=== PATIENT | male | born 1980 | race Caucasian/White ===

== ENCOUNTER 2017-08-14 20:41 | Emergency (ER) | payer OTHER ==
[2017-08-14 20:48] VITALS: RESP 18
--- NOTE | 2017-08-14 21:39 | ED ---
Chest Pain HPI - General Chief Complaint: Chest Pain Stated Complaint: Chest pain; sent from [facility] Time Seen by Provider: 08/14/17 21:20 Source: patient Mode of arrival: wheelchair Limitations: no limitations - History of Present Illness Initial Comments: 's patient is a 36-year-old man who presents to be evaluated for chest pain. Patient states that just before 6 PM, while he was sitting in relaxing after work he noticed substernal chest pain that he described as dull or aching feeling. He also noticed that his left shoulder and left upper arm felt funny. The patient states that he did eat dinner, then took shower but the symptoms did not improve so he went to be seen at the [facility]. Patient states that when he was there and EKG was done and he was told that he needed to be seen in the emergency department, and that if he did not go directly there they would call an ambulance for him. Patient denies dyspnea, diaphoresis, nausea or vomiting, palpitations, lightheadedness or syncope. MD Complaint: chest pain Onset/Timin -: hour(s) Onset: during rest Pain Location: substernal Pain Radiation: LUE Severity: mild Quality: heaviness Consistency: constant Improves With: nothing Worsens With: nothing Treatments Prior to Arrival: none - Related Data Home Medications Medication Instructions Recorded Confirmed Adalimumab [Humira] 40 mg SQ [id number] 01/03/14 08/14/17 Allergies Allergy/AdvReac Type Severity Reaction Status Date / Time No Known Allergies Allergy Verified 08/14/17 21:34 Review of Systems ROS Statement: Those systems with pertinent positive or pertinent negative responses have been documented in the HPI. ROS Other: All systems not noted in ROS Statement are negative. Constitutional: Denies: fever, chills Respiratory: Denies: cough, dyspnea Cardiovascular: Reports: as per HPI, chest pain. Denies: palpitations, orthopnea, edema Gastrointestinal: Denies: abdominal pain, nausea, vomiting Genitourinary: Denies: dysuria, hematuria Musculoskeletal: Denies: back pain Skin: Denies: rash Neurological: Denies: headache, weakness, numbness EKG Findings - EKG Results: EKG: interpreted by ERMD, WNL, sinus rhythm (Rate is proximal to 70 bpm), normal axis, normal QRS, normal ST/T, no acute changes - MA, Pacemaker, Normal: Normal tracing: normal tracing Past Medical History Additional Past Medical History / Comment(s): arthritis History of Any Multi-Drug Resistant Organisms: None Reported Past Surgical History: No Surgical Hx Reported Past Psychological History: No Psychological Hx Reported Smoking Status: Former smoker Past Alcohol Use History: Occasional Past Drug Use History: None Reported General Exam Limitations: no limitations General appearance: alert, in no apparent distress Head exam: Present: atraumatic, normocephalic Eye exam: Present: normal appearance. Absent: scleral icterus, conjunctival injection ENT exam: Present: normal oropharynx Neck exam: Present: normal inspection, full ROM Respiratory exam: Present: normal lung sounds bilaterally. Absent: respiratory distress, wheezes, rales, rhonchi, stridor Cardiovascular Exam: Present: regular rate, normal rhythm, normal heart sounds. Absent: systolic murmur, diastolic murmur, rubs, gallop GI/Abdominal exam: Present: soft. Absent: distended, tenderness, guarding, rebound Extremities exam: Present: normal inspection, normal capillary refill. Absent: pedal edema, calf tenderness Back exam: Present: normal inspection. Absent: CVA tenderness (R), CVA tenderness (L) Neurological exam: Present: alert Skin exam: Present: warm, dry, intact, normal color. Absent: rash Course Vital Signs 08/14/17 08/14/17 08/14/17 20:45 22:05 23:52 Temperature 98.5 F 98.4 F 97.8 F Pulse Rate 69 67 62 Respiratory 18 18 18 Rate Blood Pressure 139/79 138/74 129/77 O2 Sat by Pulse 98 97 97 Oximetry Disposition Clinical Impression: Chest pain Disposition: HOME SELF-CARE Condition: Good Instructions: Chest Pain (ED) Referrals: João Carter DO [Primary Care Provider] - 1-2 days
--- NOTE | 2017-08-14 22:12 | XR ---
EXAMINATION TYPE: XR chest 2V DATE OF EXAM: 08/14/2017 COMPARISON: 12/12/2014 HISTORY: Chest pain TECHNIQUE: Frontal and lateral views of the chest are obtained. FINDINGS: Heart and mediastinum are normal. Lungs are clear. Diaphragm is normal. Bony thorax appear s normal. IMPRESSION: Normal chest. No change.
[2017-08-14 22:15] LABS: Basophils # (A) 0.1 k/uL (0-0.2); Basophils % (A) 1 %; Eosinophils # (A) 0.1 k/uL (0-0.7); Eosinophils % (A) 1 %; HCT 46.3 % (39.0-53.0); HGB 16.4 gm/dL (13.0-17.5); Lymphocytes # (A) 4.6 k/uL (1.0-4.8); Lymphocytes % (A) 43 %; MCHC 35.4 g/dL (31.0-37.0); MCV 87.6 fL (80.0-100.0); Mean Platelet Volume 6.5; Monocytes # (A) 0.7 k/uL (0-1.0); Monocytes % (A) 6 %; Neutrophils % (A) 46 %; Platelet Count 272 k/uL (150-450); RBC 5.28 m/uL (4.30-5.90); RDW 12.9 % (11.5-15.5); WBC 10.8 k/uL (3.8-10.6)
[2017-08-14 22:23] LABS: INR 1.1 (<1.2); Partial Thromboplastin Time 24.9 sec (22.0-30.0); Prothrombin Time 10.3 sec (9.0-12.0)
[2017-08-14 22:31] LABS: ALT 46 U/L (21-72); AST 41 U/L (17-59); Albumin 4.6 g/dL (3.5-5.0); Alkaline Phosphatase 83 U/L (38-126); Anion Gap 11 mmol/L; Blood Urea Nitrogen 15 mg/dL (9-20); Calcium 9.6 mg/dL (8.4-10.2); Carbon Dioxide 29 mmol/L (22-30); Chloride 101 mmol/L (98-107); Glucose 81 mg/dL (74-99); Potassium 3.8 mmol/L (3.5-5.1); Sodium 141 mmol/L (137-145); Total Bilirubin 0.4 mg/dL (0.2-1.3); Total Protein 7.9 g/dL (6.3-8.2)
[2017-08-14 22:35] LABS: Creatine Kinase 328 U/L (55-170)
[2017-08-14 22:49] LABS: Creatine Kinase MB 2.4 ng/mL (0.0-2.4); Troponin I <0.012 ng/mL (0.000-0.034)
[2017-08-15 02:05] VITALS: BP 135/77; PULSE 65; TEMP 97.5
== END 2017-08-15 02:05 | disposition home or self-care (01) ==
LOC: EC 20:41
DX: R07.2 Precordial pain (principal); M19.90 Unspecified osteoarthritis, unspecified site; Z87.891 Personal history of nicotine dependence; Z79.899 Other long term (current) drug therapy
CPT/HCPCS: 36415; 71046; 80053; 82550; 82553; 83735; 84484; 85025; 85610; 85730; 93005; 99285

== ENCOUNTER → 2017-09-12 | Outpatient (CLI) | payer OTHER ==
--- NOTE | 2017-09-12 13:14 | EST ---
EXERCISE STRESS DATE OF SERVICE: 09/12/2017 AGE: 36 SEX: Male HT: 6'6" WT: 230 PROTOCOL: Twin STAGE: II DURATION OF EXERCISE: 8:15 HEART RATE REST: 80 BLOOD PRESSURE REST: 119/86 MAXIMUM HEART RATE ACHIEVED: 154 MAXIMUM BLOOD PRESSURE: 147/77 85% MPHR: 155 100% MPHR: 182 METS: 9.9 INDICATIONS: Chest pain. CLINICAL INFORMATION: Referring by Dr. Carter for a stress test and history of chest pain. Baseline heart rate 80 beats per minute. Baseline blood pressure 119/86 mmHg. Baseline 12-lead ECG shows sinus rhythm with subtle early repolarization of ST segment. The patient exercised on Twin protocol for 8 minutes 15 seconds achieving a peak heart rate of 154 beats per minute. Normal blood pressure response to exercise. There was no ECG evidence for ischemia. No exercise-induced arrhythmias were noted. IMPRESSION: Average exercise capacity. No ECG evidence for ischemia or arrhythmias. The patient complained of shortness of breath at peak exercise and his legs felt tired. No chest pain. MMODL / IJN: [id number] /
--- NOTE | 2017-09-13 12:44 | ECHOF ---
Referral Reason:R07.89 Chest Pain MEASUREMENTS -------- HEIGHT: 180.3 cm WEIGHT: 76.2 kg BP: RVIDd: 2.3 cm (< 3.3) IVSd: 0.6 cm (0.6 - 1.1) LVIDd: 4.4 cm (3.9 - 5.3) LVPWd: 0.9 cm (0.6 - 1.1) IVSs: 1.3 cm LVIDs: 2.6 cm LVPWs: 1.4 cm Ao Diam: 3.2 cm (2.0 - 3.7) AV Cusp: 2.0 cm (1.5 - 2.6) LA Diam: 2.4 cm (2.7 - 3.8) MV EXCURSION: 24.599 mm (> 18.000) MV EF SLOPE: 86 mm/s (70 - 150) EPSS: 0.3 cm MV E [place]: 0.82 m/s MV DecT: 98 ms MV A [place]: 0.88 m/s MV E/A Ratio: 0.93 FINDINGS -------- Sinus rhythm. This was a technically good study. The left ventricular size is normal. Left ventricular wall thickness is normal. Overall left vent ricular systolic function is normal with, an EF between 55 - 60 %. The right ventricle is normal in size and function. The left atrium is normal in size. The right atrium is normal in size. The aortic valve is trileaflet, and appears structurally normal. No aortic stenosis or regurgitation. There is trace mitral regurgitation. Trace tricuspid regurgitation present. The right ventricular systolic pressure, as measured by Dopp ler, is {RVSP}. Pulmonic valve appears structurally normal. The pericardium is normal. CONCLUSIONS -------- 1. Sinus rhythm. 2. This was a technically good study. 3. The left ventricular size is normal. 4. Left ventricular wall thickness is normal. 5. Overall left ventricular systolic function is normal with, an EF between 55 - 60 %. 6. The right ventricle is normal in size and function. 7. The left atrium is normal in size. 8. The right atrium is normal in size. 9. The aortic valve is trileaflet, and appears structurally normal. No aortic stenosis or regurgitati on. 10. There is trace mitral regurgitation. 11. Trace tricuspid regurgitation present. 12. The right ventricular systolic pressure, as measured by Doppler, is {RVSP}. 13. Pulmonic valve appears structurally normal. 14. The pericardium is normal. DISHTANK OPERATOR: Ann Murcia RDCS
== END ==
LOC: RADNMMAIN 10:45
PROVIDERS: ATTEND Family Medicine
DX: R07.89 Other chest pain (principal); R06.02 Shortness of breath
CPT/HCPCS: 93017; 93306

== ENCOUNTER → 2020-03-02 | Outpatient (CLI) | payer BC ==
--- NOTE | 2020-03-02 21:49 | MR ---
EXAMINATION TYPE: MR sacroiliac joints wo con DATE OF EXAM: 03/02/2020 COMPARISON: None HISTORY: Ankylosing spondylitis of unspecified sites, Pain Multiplanar multiecho imaging of the pelvis and sacroiliac joints was performed without contrast. There is some ankylotic changes of the anterior sacroiliac joints. I see no focal bone destruction. T here is no sign of free fluid in the pelvis. There is no evidence of a fracture. The hip joint spaces are fairly normal. The lower lumbar spine is intact. There is no paraspinal mass. The lower lumbar s pine disc spaces are fairly normal. There is no evidence of spinal stenosis. IMPRESSION: Ankylotic changes of the sacroiliac joints consistent with chronic sacroiliitis. No fracture seen.
== END | disposition home or self-care (01) ==
LOC: RADMRIMAIN 18:47
PROVIDERS: ATTEND Internal Medicine Rheumatology
DX: M24.659 Ankylosis, unspecified hip (principal)
CPT/HCPCS: 72195

== ENCOUNTER → 2020-12-08 | Outpatient (CLI) | payer BC ==
--- NOTE | 2020-12-08 13:10 | US ---
EXAMINATION TYPE: US liver DATE OF EXAM: 12/08/2020 COMPARISON: NONE CLINICAL HISTORY: R79.9 Abnormal blood work. elevated alpha fetopreotein. EXAM MEASUREMENTS: Liver Length: 13.0 cm Gallbladder Wall: 0.3 cm CBD: 0.3 cm Right Kidney: 11.7 x 5.2 x 5.7 cm Pancreas: visualized portions wnl Liver: wnl Gallbladder: No stones seen Evidence for sonographic De La Torre's sign: No CBD: wnl Right Kidney: No hydronephrosis or masses seen IMPRESSION: No distinct abnormality appreciated.
--- NOTE | 2020-12-08 15:11 | US ---
EXAMINATION TYPE: US scrotum with doppler. Grayscale and color Doppler Duplex imaging performed of trey benjamin scrotum. DATE OF EXAM: 12/08/2020 COMPARISON: NONE CLINICAL HISTORY: R79.9 Abnormal blood work. Elevated alpha fetoprotein EXAM MEASUREMENTS: TESTICLES: Right Testicle: 4.7 x 2.0 x 2.8 cm Left Testicle: 5. X 2.2 x 3.1 cm EPIDIDYMIS HEAD: Right Epididymis: 1.0 x 1.0 cm, cyst measures 0.5 x 0.5 cm. This is suggestive of a right epididymal head cyst or spermatocele. Left Epididymis: 1.2 x 1.0 cm Doppler performed to assess for testicular vascularity; good bilateral color flow and waveforms are s een. There is no evidence of testicular torsion. Presence of hydroceles: No significant hydrocele. There is a tiny amount of fluid noted surrounding both testicles. Presence of varicoceles: none appreciated. IMPRESSION: 1. Right epididymal head cyst or spermatocele measuring 5 mm. 2. No evidence of testicular torsion, orchitis, or epididymitis.
== END | disposition home or self-care (01) ==
LOC: RADUSWWP 10:22
PROVIDERS: ATTEND Urology
DX: R79.9 Abnormal finding of blood chemistry, unspecified (principal)
CPT/HCPCS: 76705; 76870; 93975

== ENCOUNTER → 2021-01-22 | Outpatient (CLI) | payer BC | END | disposition home or self-care (01) | LOC: LABWHC1 16:15 | PROVIDERS: ATTEND Urology | DX: R77.2 Abnormality of alphafetoprotein (principal) | CPT/HCPCS: 36415; 82105 ==

== ENCOUNTER → 2021-02-22 | Outpatient (CLI) | payer BC ==
--- NOTE | 2021-02-23 07:59 | CT ---
EXAMINATION TYPE: CT abdomen pelvis wo/w con DATE OF EXAM: 02/22/2021 COMPARISON: Liver ultrasound December 08, 2020 HISTORY: Abnormality of alphafetoprotien CT DLP: 1538.90 mGycm, Automated Exposure Control for Dose Reduction was Utilized. CONTRAST: CT scan of the abdomen and pelvis is performed with oral and without and with IV Contrast, patient in jected with 100 mL of Isovue 300. FINDINGS: LUNG BASES: No significant abnormality is appreciated. LIVER/GB: Liver overall normal in size. No concerning solid or cystic mass identified. Gallbladder ap pears within normal limits. No biliary dilatation is noted. No surrounding ascites is seen. Findings correlate with recent ultrasound. PANCREAS: No significant abnormality is seen. SPLEEN: No significant abnormality is seen. ADRENALS: No significant abnormality is seen. KIDNEYS: On noncontrast images there is 2 to 3 mm calculus upper to mid pole of the right kidney dilia nal image 58. No left-sided nephrolithiasis. Postcontrast images show symmetric cortical medullary up take and excretion without hydronephrosis seen bilaterally. Urinary bladder within normal limits. BOWEL: Oral contrast reaches level of rectum. No suspicious small or large bowel dilatation. Normal c ontrast-filled appendix from cecum extending medially. PROSTATE/SEMINAL VESICLES: Occasional scattered pelvic phleboliths. Prostate gland measures upper fraser its of normal in size. LYMPH NODES: No greater than 1cm abdominal or pelvic lymph nodes are appreciated. OSSEOUS STRUCTURES: Mild disc space narrowing lumbosacral junction. OTHER: Small to moderate-sized fat-containing umbilical hernia. IMPRESSION: No worrisome intrahepatic mass or intrahepatic ductal dilatation. Incidental 2 to 3 mm no nobstructing right renal calculus.
== END | disposition home or self-care (01) ==
LOC: RADCTMAIN 16:03
PROVIDERS: ATTEND Urology
DX: N20.0 Calculus of kidney (principal); R77.2 Abnormality of alphafetoprotein
CPT/HCPCS: 74178; Q9967

== ENCOUNTER 2021-04-22 08:36 | Inpatient (IN) | payer BC ==
[2021-04-22] MEDS ORDERED: ALBUTEROL HFA INHALER INHALATION STA (08:56)
[2021-04-22] MEDS ORDERED: IBUPROFEN 800 MG TAB PO STA (08:56)
[2021-04-22] MEDS ORDERED: SODIUM CHLORIDE 0.9% 2,000 ML IV ONE (08:56)
[2021-04-22] MEDS ORDERED: ACETAMINOPHEN TAB 500 MG TAB PO STA (08:56)
--- NOTE | 2021-04-22 09:17 | ED ---
General Adult HPI - General Chief complaint: Fever Stated complaint: Covid+, Fever Time Seen by Provider: 04/22/21 08:45 Source: patient, RN notes reviewed Mode of arrival: wheelchair Limitations: no limitations - History of Present Illness Initial comments: This a 40-year-old male presents emergency Department chief complaint of fever cough congestion body aches. Patient states cannot give rid of the fever. He states that he started having symptoms on 04/12/2021. He tested positive 04/14/2021. Patient continues to have body aches, fever no recent dose Tylenol Motrin since last night. Patient states he does have a history of ankylosing spondylitis is on no medications for this currently. Patient states he is a former smoker no history of asthma COPD. - Related Data Home Medications Medication Instructions Recorded Confirmed Adalimumab [Humira] 40 mg SQ [id number] 01/03/14 08/14/17 Allergies Allergy/AdvReac Type Severity Reaction Status Date / Time No Known Allergies Allergy Verified 04/22/21 08:39 Review of Systems ROS Statement: Those systems with pertinent positive or pertinent negative responses have been documented in the HPI. ROS Other: All systems not noted in ROS Statement are negative. Past Medical History Additional Past Medical History / Comment(s): arthritis History of Any Multi-Drug Resistant Organisms: None Reported Past Surgical History: No Surgical Hx Reported Past Psychological History: No Psychological Hx Reported Smoking Status: Never smoker Past Alcohol Use History: Occasional Past Drug Use History: None Reported General Exam Limitations: no limitations General appearance: alert, in no apparent distress Head exam: Present: atraumatic, normocephalic, normal inspection Eye exam: Present: normal appearance, PERRL, EOMI. Absent: scleral icterus, conjunctival injection, periorbital swelling Neck exam: Present: normal inspection. Absent: tenderness, meningismus, lymphadenopathy Respiratory exam: Present: decreased breath sounds. Absent: normal lung sounds bilaterally, respiratory distress, wheezes, rales, rhonchi, stridor Cardiovascular Exam: Present: regular rate, normal rhythm, normal heart sounds. Absent: systolic murmur, diastolic murmur, rubs, gallop, clicks GI/Abdominal exam: Present: soft, normal bowel sounds. Absent: distended, tenderness, guarding, rebound, rigid Neurological exam: Present: alert, oriented X3, CN II-XII intact Skin exam: Present: warm, dry, intact, normal color. Absent: rash Course Vital Signs 04/22/21 04/22/21 08:41 10:47 Temperature 100.1 F H Pulse Rate 98 Respiratory 20 Rate Blood Pressure 128/70 O2 Sat by Pulse 92 L 90 L Oximetry Medical Decision Making - Medical Decision Making Patient's x-rays showed bilateral COVID-19 pneumonia, patient ambulates has a pulse ox 87-88%. Patient resting pulse ox is 91 and 92. Patient be admitted for: Pneumonia hypoxia. - Lab Data Result diagrams: 04/22/21 09:35 04/22/21 09:35 Lab Results 04/22/21 04/22/21 Range/Units 09:35 09:35 WBC 7.4 (3.8-10.6) k/uL RBC 5.08 (4.30-5.90) m/uL Hgb 15.4 (13.0-17.5) gm/dL Hct 44.1 (39.0-53.0) % MCV 86.8 (80.0-100.0) fL MCH 30.4 (25.0-35.0) pg MCHC 35.0 (31.0-37.0) g/dL RDW 12.7 (11.5-15.5) % Plt Count 221 (150-450) k/uL MPV 7.6 Neutrophils % 77 % Lymphocytes % 15 % Monocytes % 6 % Eosinophils % 0 % Basophils % 0 % Neutrophils # 5.7 (1.3-7.7) k/uL Lymphocytes # 1.1 (1.0-4.8) k/uL Monocytes # 0.4 (0-1.0) k/uL Eosinophils # 0.0 (0-0.7) k/uL Basophils # 0.0 (0-0.2) k/uL Sodium 134 L (137-145) mmol/L Potassium 4.1 (3.5-5.1) mmol/L Chloride 97 L (98-107) mmol/L Carbon Dioxide 28 (22-30) mmol/L Anion Gap 9 mmol/L BUN 14 (9-20) mg/dL Creatinine 1.12 (0.66-1.25) mg/dL Est GFR (CKD-EPI)AfAm >90 (>60 ml/min/1.73 sqM) Est GFR (CKD-EPI)NonAf 81 (>60 ml/min/1.73 sqM) Glucose 116 H (74-99) mg/dL Calcium 8.8 (8.4-10.2) mg/dL Total Bilirubin 0.7 (0.2-1.3) mg/dL AST 43 (17-59) U/L ALT 42 (4-49) U/L Alkaline Phosphatase 82 (38-126) U/L Total Protein 7.2 (6.3-8.2) g/dL Albumin 3.8 (3.5-5.0) g/dL Disposition Clinical Impression: COVID-19, Hypoxia Disposition: ADMITTED IP TO THIS HOSP Condition: Serious Referrals: João Carter DO [Primary Care Provider] - 1-2 days
[2021-04-22 09:56] LABS: Basophils % (A) 0 %; Eosinophils % (A) 0 %; HCT 44.1 % (39.0-53.0); HGB 15.4 gm/dL (13.0-17.5); Lymphocytes # (A) 1.1 k/uL (1.0-4.8); Lymphocytes % (A) 15 %; MCH 30.4 pg (25.0-35.0); MCV 86.8 fL (80.0-100.0); Mean Platelet Volume 7.6; Monocytes # (A) 0.4 k/uL (0-1.0); Monocytes % (A) 6 %; Neutrophils # (A) 5.7 k/uL (1.3-7.7); Neutrophils % (A) 77 %; Platelet Count 221 k/uL (150-450); RBC 5.08 m/uL (4.30-5.90); RDW 12.7 % (11.5-15.5); WBC 7.4 k/uL (3.8-10.6)
--- NOTE | 2021-04-22 10:09 | XR ---
EXAMINATION TYPE: XR chest 2V DATE OF EXAM: 04/22/2021 COMPARISON: Chest x-ray August 14, 2012 HISTORY: Fever and SOB. TECHNIQUE: Frontal and lateral views of the chest are obtained. FINDINGS: There are new increased opacities in the lower lungs and right midlung periphery. No pleur al effusion or pneumothorax seen bilaterally. The cardiac silhouette size is stable and within norm al limits. The osseous structures are intact. IMPRESSION: New Bilateral prominently lower lung multifocal opacities with additional more prominent right mid lung involvement consistent with covid-19 infection.
[2021-04-22 10:11] LABS: ALT 42 U/L (4-49); AST 43 U/L (17-59); African American GFR (CKD) >90 (>60 ml/min/1.73 sqM); Albumin 3.8 g/dL (3.5-5.0); Alkaline Phosphatase 82 U/L (38-126); Anion Gap 9 mmol/L; Blood Urea Nitrogen 14 mg/dL (9-20); Calcium 8.8 mg/dL (8.4-10.2); Carbon Dioxide 28 mmol/L (22-30); Chloride 97 mmol/L (98-107); Glucose 116 mg/dL (74-99); Non-African American GFR(CKD) 81 (>60 ml/min/1.73 sqM); Potassium 4.1 mmol/L (3.5-5.1); Sodium 134 mmol/L (137-145); Total Bilirubin 0.7 mg/dL (0.2-1.3); Total Protein 7.2 g/dL (6.3-8.2)
[2021-04-22] MEDS ORDERED: NALOXONE 0.4 MG/ML 1 ML VIAL IV PRN (10:54)
[2021-04-22] MEDS ORDERED: ONDANSETRON 4 MG/2 ML VIAL IVP PRN (10:54)
[2021-04-22] MEDS ORDERED: ACETAMINOPHEN TAB 325 MG TAB PO PRN (10:54)
[2021-04-22] MEDS ORDERED: DEXAMETHASONE SOD PHOSPHATE 10 MG/ML 1 ML VIAL IVP STA (10:55)
[2021-04-22] MEDS: SODIUM CHLORIDE 0.9% 1,000 ML IV SCH (11:25)
--- NOTE | 2021-04-22 13:14 | P.CNPUL ---
History of Present Illness Consult date: 04/22/21 Reason for consult: dyspnea History of present illness: 40-year-old male patient came into the ED because of fever and cough and body aches. The patient has been febrile and his been having issues since 04/12/2021. He apparently tested positive for coronary stenting on 04/14/2021. He continued to have symptoms was taken a combination of Motrin and Tylenol patient basis. She is currently running a low-grade fever of 100.1. Pulse ox on room air is around 90%. His chest x-ray shows diffuse bilateral pulmonary infiltrates in the perihilar area and some in the right upper lobe. The patient's blood work shows a normal white cell count, electrolytes are normal, informative markers are still pending for now. Presentation is highly susp icious for cold knife he relates that pneumonia. Note that he has history of ankylosing spondylitis and he has been treated with Humira injections 40 mg subcu every 2 weeks on outpatient basis. Note that this is a on vaccinated individual and the patient has been symptomatic since 04/12/2021. His was also infected [id number]. Mother the patient has not taken his Humira injection for more than 3 months. The patient has taken prednisone on outpatient basis and he took it for a total of 7 days started on 04/15/2021. Review of Systems Constitutional: Reports fatigue, Reports fever, Reports lethargy, Reports weakness Eyes: denies as per HPI, denies blurred vision, denies bulging eye, denies decreased vision, denies diplopia, denies discharge, denies dry eye, denies irritation, denies itching, denies pain, denies photophobia, denies loss of peripheral vision, denies loss of vision, denies tunnel vision/blind spots Ears: deny: decreased hearing, ear discharge, earache, tinnitus Breasts: absent: as per HPI, gynecomastia Cardiovascular: Reports decreased exercise tolerance, Reports dyspnea on exertion Respiratory: Reports as per HPI, Reports cough Gastrointestinal: Reports as per HPI Genitourinary: Reports as per HPI Musculoskeletal: Reports as per HPI Musculoskeletal: absent: ankle pain, ankle stiffness, ankle swelling, as per HPI, elbow pain, elbow stiffness, elbow swelling, foot pain, foot stiffness, foot swelling, hand pain, hand stiffness, hand swelling, hip pain, hip stiffness, hip swelling, knee pain, knee stiffness, knee swelling, shoulder pain, shoulder stiffness, shoulder swelling, wrist pain, wrist stiffness, wrist swelling Integumentary: Reports as per HPI Neurological: Reports as per HPI, Reports weakness Psychiatric: Reports as per HPI Endocrine: Reports as per HPI Hematologic/Lymphatic: Reports as per HPI Allergic/Immunologic: Reports as per HPI Past Medical History Additional Past Medical History / Comment(s): arthritis History of Any Multi-Drug Resistant Organisms: None Reported Past Surgical History: No Surgical Hx Reported Past Psychological History: No Psychological Hx Reported Smoking Status: Never smoker Past Alcohol Use History: Occasional Past Drug Use History: None Reported Medications and Allergies Home Medications Medication Instructions Recorded Confirmed Type No Known Home Medications 04/22/21 04/22/21 History Allergies Allergy/AdvReac Type Severity Reaction Status Date / Time No Known Allergies Allergy Verified 04/22/21 12:17 Physical Exam Vitals: Vital Signs Temp Pulse Resp BP Pulse Ox 04/22/21 12:40 18 04/22/21 11:23 98.8 F 70 18 111/66 90 L 04/22/21 10:47 90 L 04/22/21 08:41 100.1 F H 98 20 128/70 92 L Intake and Output 04/21/21 04/22/21 04/22/21 22:59 06:59 14:59 Other: Weight 97.522 kg Gen. appearance the patient is on room air oxygen with a pulse ox ranging between 90 and 92%. His breathing is nonlabored and his comfortable. The patient appeared well nourished and normally developed. Vital signs as documented. Head exam is unremarkable. No scleral icterus or corneal arcus noted. Neck is without jugular venous distension, thyromegaly, or carotid bruits. Carotid upstrokes are brisk bilaterally. Lungs reveal crackles in the mid and lower lung alex bilaterally. Cardiac exam reveals the PMI to be normally sized and situated. Rhythm is regular. First and second heart sounds normal. No murmurs, rubs or gallops. Abdominal exam reveals normal bowel sounds, no masses, no organomegaly and no aortic enlargement. Extremities are nonedematous and both femoral and pedal pulses are normal. Examination of the skin revealed no evidence of significant rashes, suspicious appearing nevi or other concerning lesions.. Neurologically, the patient is awake and alert and the patient does not have any focal neurological deficit. Cranial nerves are essentially intact. Results - Laboratory Findings CBC and BMP: 04/22/21 09:35 04/22/21 09:35 Abnormal lab findings: Abnormal Labs 04/22/21 09:35 Sodium 134 L Chloride 97 L Glucose 116 H - Diagnostic Findings Chest x-ray: image reviewed Assessment and Plan Plan: 1 acute COVID 19 related pneumonia, treated with prednisone outpatient basis, sy mptoms started approximately 10 days ago worse over this past few days and the patient presented to the hospital for worsening shortness of breath and ongoing fever 2 fever secondary to above 3 generalized weakness secondary to above 4 acute hypoxic respiratory failure currently pulse ox is in the order of 92% on room air oxygen 5 history of ankylosing spondylitis, and the patient has been off Humira for several months Plan Titrate FiO2 to maintain a saturation above 90% and use oxygen if needed Put the patient on Decadron 6 mg IV every 24 hours and the patient is outside the window for the severe Check inflammatory markers including pro-calcitonin, LDH, CRP, and d-dimer is Start the patient on Lovenox 40 mg subcu for DVT prophylaxis Multivitamin supplements IV fluids of normal saline at the rate of 75 mL an hour We'll continue to follow
[2021-04-22] MEDS ORDERED: HYDROcodone/APAP 5-325MG 1 EACH TAB PO PRN (13:57)
--- NOTE | 2021-04-22 14:01 | P.HPIM ---
History of Present Illness H&P Date: 04/22/21 Chief Complaint: shortness of breath [facility] is covering [facility] (Dr. Kurtz, Dr. Sorensen, and Dr. Sanchez) on 04/22 and 04/23 please contact us on perfect serve with any questions, needs, or concerns. Patient is a 40 yo male patient of Dr. Carter with a hx of ankylosing spondylitis non-immunosuppressive agents and prior tobacco abuse who presented to the emergency department congestion and body aches. Patient tested positive for COVID-19 on 04/14. He was unable to cherise his fevers at home. On arrival to the ER he had a fever of 100.1 and an O2 sat of 92% on room air. Chest x-ray showed new bilateral prominent lower lobe multifocal opacity with mid lung involvement. Initial laboratory analysis shows sodium 134, chloride 97, and glucose 116. In the ER he was given a dose of Decadron, Motrin, and 1 L of IV fluids. Arrangements are made for admission. Patient seen and examined at bedside. He reports that his had symptoms of cold with starting on 04/11, his symptoms started the evening of 04/12 with loss of smell and taste, sore throat, cough, and shortness of breath. He received his positive test on 04/14 (verified on his phone) from [facility]. He then contacted Dr. Carter who prescribed him prednisone taper. He initially felt better but in the last 5 days has had worsening fevers. His appetite has been low. He has been drinking a lot of fluids but not eating much. He has a history of ankylosing spondylitis that was taken off of [facility] in the summer. He has not been vaccinated. He is still working. He uses no assistive devices. General: ill appearing, mild distress, appears at stated age Derm: warm, dry Head: atraumatic, normocephalic, symmetric Eyes: EOMI, no lid lag, anicteric sclera, pupils equal round reactive to light ENT: Nose and ears atraumatic, no thrush, no pharyngeal erythema Neck: No thyromegaly, no cervical lymphadenopathy, trachea midline, supple Mouth: no lip lesion, mucus membranes dry, lip cracking Cardiovascular: S1S2 reg, no murmur, positive posterior tibial pulse bilateral, no edema, capillary refill less than 2 seconds Lungs: course bs bilateral, no ronchi, no rales, no wheeze, no accessory muscle use Abdominal: soft, nontender to palpation, no guarding, no appreciable organomegaly, normal bowel sounds Ext: no gross muscle atrophy, muscle strength muscle strength 5 out of 5 in all 4 extremities, no contractures Neuro: CN II-XI grossly intact, light touch intact all 4 extremities, finger to nose within normal limits, Psych: Alert, oriented, appropriate affect Assessment/plan: COVID-19 pneumonitis in an unvacinated individual Acute hypoxic respiratory failure (not requiring any oxygen but has a SpO2 is 94) -Decadron day #1 -Pulmonary consultation -Zinc, vitamin D, vitamin C -Follow: Labs - repeat chest x-ray in a.m. Hyponatremia secondary to dehydration, mild - IVF X 24 horus Ankylosing spondylitis - no requiring any treatment at this time The patient is admitted with an anticipated greater than 2 midnight stay for evaluation of COVID 19 pneumonitis . Surrogate decision-maker: CODE STATUS:full code-- patient would want ventilation for COVID DVT prophylaxis: Lovenox Discussed with: patient, nursing, ed physician, Yuliana Davis, patient will call his Anticipated discharge date: 2-[address]: home A total of 65 minutes was spent on the care of this complex patient more than 50% of the time was spent in counseling and care coordination. Past Medical History Additional Past Medical History / Comment(s): arthritis History of Any Multi-Drug Resistant Organisms: None Reported Past Surgical History: No Surgical Hx Reported Past Psychological History: No Psychological Hx Reported Smoking Status: Never smoker Past Alcohol Use History: Occasional Past Drug Use History: None Reported Medications and Allergies Home Medications Medication Instructions Recorded Confirmed Type No Known Home Medications 04/22/21 04/22/21 History Allergies Allergy/AdvReac Type Severity Reaction Status Date / Time No Known Allergies Allergy Verified 04/22/21 12:17 Physical Exam Osteopathic Statement: *. No significant issues noted on an osteopathic st ructural exam other than those noted in the History and Physical/Consult. Vitals: Vital Signs Temp Pulse Resp BP Pulse Ox 04/22/21 12:40 18 04/22/21 11:23 98.8 F 70 18 111/66 90 L 04/22/21 10:47 90 L 04/22/21 08:41 100.1 F H 98 20 128/70 92 L Intake and Output 04/21/21 04/22/21 04/22/21 22:59 06:59 14:59 Other: Weight 97.522 kg Results CBC & Chem 7: 04/22/21 09:35 04/22/21 09:35 Labs: Abnormal Lab Results - Last 24 Hours (Table) 04/22/21 Range/Units 09:35 Sodium 134 L (137-145) mmol/L Chloride 97 L (98-107) mmol/L Glucose 116 H (74-99) mg/dL
[2021-04-22] MEDS: CHOLECALCIFEROL 25 MCG (1000 IU) TABLET PO SCH (15:08)
[2021-04-22] MEDS: ASCORBIC ACID 500 MG TAB PO SCH (15:09)
[2021-04-22] MEDS: ZINC SULFATE 220 MG CAP PO SCH (15:09)
[2021-04-22] MEDS: ENOXAPARIN 40 MG/0.4 ML SYRINGE SQ SCH (16:59)
[2021-04-22 20:04] LABS: C Reactive Protein 12.2 mg/dL (0.00-0.80)
[2021-04-23] MEDS: SODIUM CHLORIDE 0.9% 1,000 ML IV SCH ×2 (04:37→16:39)
--- NOTE | 2021-04-23 07:37 | XR ---
EXAMINATION TYPE: XR chest 1V portable DATE OF EXAM: 04/23/2021 COMPARISON: 04/22/2021 HISTORY: COVID TECHNIQUE: Single frontal view of the chest is obtained. FINDINGS: Bilateral peripheral airspace disease, worse on the right, appears similar to the prior examination. Cardiac silhouette is unchanged. IMPRESSION: No significant change since the prior exam.
[2021-04-23] MEDS: FAMOTIDINE 20 MG TAB PO SCH (08:51)
[2021-04-23] MEDS: ZINC SULFATE 220 MG CAP PO SCH (08:51)
[2021-04-23] MEDS: dexAMETHasone 2 MG TAB PO SCH (08:51)
[2021-04-23] MEDS: CHOLECALCIFEROL 25 MCG (1000 IU) TABLET PO SCH (08:51)
[2021-04-23] MEDS: ASCORBIC ACID 500 MG TAB PO SCH (08:51)
[2021-04-23] MEDS: ENOXAPARIN 40 MG/0.4 ML SYRINGE SQ SCH (08:51)
[2021-04-23 09:05] LABS: HGB 14.2 gm/dL (13.0-17.5); MCHC 33.9 g/dL (31.0-37.0); MCV 88.5 fL (80.0-100.0); Mean Platelet Volume 8.2; Platelet Count 227 k/uL (150-450); RBC 4.74 m/uL (4.30-5.90); WBC 11.1 k/uL (3.8-10.6)
[2021-04-23 09:28] LABS: Potassium 4.3 mmol/L (3.5-5.1)
[2021-04-23 09:29] LABS: African American GFR (CKD) >90 (>60 ml/min/1.73 sqM); Anion Gap 7 mmol/L; Blood Urea Nitrogen 14 mg/dL (9-20); Calcium 8.3 mg/dL (8.4-10.2); Carbon Dioxide 27 mmol/L (22-30); Chloride 100 mmol/L (98-107); Glucose 151 mg/dL (74-99); Non-African American GFR(CKD) >90 (>60 ml/min/1.73 sqM); Sodium 134 mmol/L (137-145)
--- NOTE | 2021-04-23 10:38 | P.PN ---
Subjective Progress Note Date: 04/23/21 [facility] is covering [facility] (Dr. Kurtz, Dr. Sorensen, and Dr. Sanchez) on 04/22 and 04/23 please contact us on perfect serve with any questions, needs, or concerns. Patient is a 40 yo male patient of Dr. Carter with a hx of ankylosing spondylitis non-immunosuppressive agents and prior tobacco abuse who presented to the emergency department congestion and body aches. Patient tested positive for COVID-19 on 04/14. He was unable to cherise his fevers at home. On arrival to the ER he had a fever of 100.1 and an O2 sat of 92% on room air. Chest x-ray showed new bilateral prominent lower lobe multifocal opacity with mid lung involvement. Initial laboratory analysis shows sodium 134, chloride 97, and glucose 116. In the ER he was given a dose of Decadron, Motrin, and 1 L of IV fluids. Arrangements were made for admission. He did well and had no recurrent fevers after admission. He was seen by pulmonary Patient seen and examined at bedside. Shortness of breath is no better than yesterday. Continues with cough. No fevers. Appetite has resumed. He is to go home. We had an approximately 20 minute discussion about COVID-19 va ccination. General: ill appearing, no distress, appears at stated age Derm: warm, dry Head: atraumatic, normocephalic, symmetric Eyes: EOMI, no lid lag, anicteric sclera Mouth: no lip lesion, mucus membranes moist Cardiovascular: S1S2 reg, no murmur, positive posterior tibial pulse bilateral, Lungs: Course bs bilateral, no rhonchi, no rales , no accessory muscle use, no converational dyspnea Abdominal: soft, nontender to palpation, no guarding, no appreciable organomegaly Ext: no gross muscle atrophy, no edema, no contractures Neuro: CN II-XI grossly intact, no focal neuro deficits Psych: Alert, oriented, appropriate affect Assessment/plan: COVID-19 pneumonitis in an unvacinated individual Acute hypoxic respiratory failure (not requiring any oxygen but has a SpO2 is 94) -Decadron day #2 -Pulmonary recs appreciated -Zinc, vitamin D, vitamin C -Follow: Labs - plan is to monitor for more day given duration of symptoms and being 93% on room air, Patient is aware likely home in AM is SPO2 is stable. Leukocytosis - likely reactive - repeat CBC in AM Hyponatremia secondary to dehydration, mild - IVF - stable. Ankylosing spondylitis - no requiring any treatment at this time DVT prophylaxis: Lovenox Discussed with: patient, nursing Anticipated discharge date: in AM if no O2 requirements. Anticipated discharge place: home A total of 35 minutes was spent on the care of this complex patient more than 50% of the time was spent in counseling and care coordination. Objective - Vital Signs Vital signs: Vital Signs Temp 98.4 F 04/23/21 06:06 Pulse 78 04/23/21 06:06 Resp 16 04/23/21 06:06 BP 125/75 04/23/21 06:06 Pulse Ox 93 L 04/23/21 06:06 Intake & Output 04/22/21 04/23/21 04/23/21 18:59 06:59 18:59 Weight 97.522 kg 97.522 kg Other: # Voids 1 - Labs CBC & Chem 7: 04/23/21 08:17 04/23/21 08:17 Labs: Abnormal Lab Results - Last 24 Hours (Table) 04/22/21 04/22/21 04/23/21 Range/Units 13:25 13:25 08:17 WBC (3.8-10.6) k/uL D-Dimer 0.61 H (<0.60) mg/L FEU Sodium 134 L (137-145) mmol/L Glucose 151 H (74-99) mg/dL Calcium 8.3 L (8.4-10.2) mg/dL Ferritin 918.0 H (22.0-322.0) ng/mL Lactate Dehydrogenase 306 H (120-246) U/L C-Reactive Protein 12.20 H (0.00-0.80) mg/dL 04/23/21 Range/Units 08:17 WBC 11.1 H (3.8-10.6) k/uL D-Dimer (<0.60) mg/L FEU Sodium (137-145) mmol/L Glucose (74-99) mg/dL Calcium (8.4-10.2) mg/dL Ferritin (22.0-322.0) ng/mL Lactate Dehydrogenase (120-246) U/L C-Reactive Protein (0.00-0.80) mg/dL
--- NOTE | 2021-04-23 14:47 | P.PN ---
Subjective Progress Note Date: 04/23/21 40-year-old male patient came into the ED because of fever and cough and body aches. The patient has been febrile and his been having issues since 04/12/2021. He apparently tested positive for coronary stenting on 04/14/2021. He continued to have symptoms was taken a combination of Motrin and Tylenol patient basis. She is currently running a low-grade fever of 100.1. Pulse ox on room air is around 90%. His chest x-ray shows diffuse bilateral pulmonary infiltrates in the perihilar area and some in the right upper lobe. The patient's blood work shows a normal white cell count, electrolytes are normal, informative markers are still pending for now. Presentation is highly suspicious for cold knife he relates that pneumonia. Note that he has history of ankylosing spondylitis and he has been treated with Humira injections 40 mg subcu every 2 weeks on outpatient basis. Note that this is a on vaccinated individual and the patient has been symptomatic since 04/12/2021. His was also infected [id number]. Mother the patient has not taken his Humira injection for more than 3 months. The patient has taken prednisone on outpatient basis and he took it for a total of 7 days started on 04/15/2021. on today's evaluation of 04/23/2021, I'm seeing the patient for a follow-up. He was seen in consultation yesterday and the patient was seen in the emergency department. Currently is on the medical floor. The patient has been infected with coronavirus and the patient had hypoxemic respiratory failure and for that reason the patient was hospitalized. Current pulse ox is ranging between 91-97% on room air oxygen and the patient is currently afebrile and hemodynamically stable. He was seen in the emergency department yesterday. He was started on Lovenox 40 mg subcu for DVT prophylaxis. The patient was also started on echo 6 mg by mouth daily. On his blood work, the patient has a LDH level of 306 and a CRP level of 12.2. all of the blood electrolytess are all within normal limits. D-dimer is at 0.6 and the white cell count is at 11.1. Objective - Vital Signs Vital signs: Vital Signs Temp 98.5 F 04/23/21 12:30 Pulse 85 04/23/21 12:30 Resp 20 04/23/21 12:30 BP 119/71 04/23/21 12:30 Pulse Ox 91 L 04/23/21 12:30 Intake & Output 04/22/21 04/23/21 04/23/21 18:59 06:59 18:59 Weight 97.522 kg 97.522 kg Other: # Voids 1 - Exam Gen. appearance the patient is on room air oxygen with a pulse ox ranging between 90 and 92%. His breathing is nonlabored and his comfortable. The patient appeared well nourished and normally developed. Vital signs as documented. Head exam is unremarkable. No scleral icterus or corneal arcus noted. Neck is without jugular venous distension, thyromegaly, or carotid bruits. Carotid upstrokes are brisk bilaterally. Lungs reveal crackles in the mid and lower lung alex bilaterally. Cardiac exam reveals the PMI to be normally sized and situated. Rhythm is regular. First and second heart sounds normal. No murmurs, rubs or gallops. Abdominal exam reveals normal bowel sounds, no masses, no organomegaly and no aortic enlargement. Extremities are nonedematous and both femoral and pedal pu lses are normal. Examination of the skin revealed no evidence of significant rashes, suspicious appearing nevi or other concerning lesions.. Neurologically, the patient is awake and alert and the patient does not have any focal neurological deficit. Cranial nerves are essentially intact. - Labs CBC & Chem 7: 04/23/21 08:17 04/23/21 08:17 Labs: Abnormal Lab Results - Last 24 Hours (Table) 04/22/21 04/23/21 04/23/21 Range/Units 13:25 08:17 08:17 WBC 11.1 H (3.8-10.6) k/uL Sodium 134 L (137-145) mmol/L Glucose 151 H (74-99) mg/dL Calcium 8.3 L (8.4-10.2) mg/dL Ferritin 918.0 H (22.0-322.0) ng/mL Lactate Dehydrogenase 306 H (120-246) U/L C-Reactive Protein 12.20 H (0.00-0.80) mg/dL Assessment and Plan Plan: 1 acute COVID 19 related pneumonia, treated with prednisone outpatient basis, symptoms started approximately 10 days ago worse over this past few days and the patient presented to the hospital for worsening shortness of breath and ongoing fever 2 fever secondary to above 3 generalized weakness secondary to above 4 acute hypoxic respiratory failure currently pulse ox is in the order of 92% on room air oxygen 5 history of ankylosing spondylitis, and the patient has been off Humira for several months Plan the patient is currently on room air oxygen Continue total of 10 day course of Decadron Inflammatory markers are mildly elevated IV fluids to KVO discharge home within the next 24 hours
[2021-04-24] MEDS: SODIUM CHLORIDE 0.9% 1,000 ML IV SCH (05:43)
[2021-04-24 07:08] LABS: HCT 39.5 % (39.0-53.0); HGB 13.5 gm/dL (13.0-17.5); MCH 30.1 pg (25.0-35.0); MCHC 34.1 g/dL (31.0-37.0); MCV 88.3 fL (80.0-100.0); Platelet Count 245 k/uL (150-450); RBC 4.48 m/uL (4.30-5.90); RDW 12.2 % (11.5-15.5); WBC 10.9 k/uL (3.8-10.6)
[2021-04-24 07:12] LABS: ALT 26 U/L (4-49); AST 26 U/L (17-59); African American GFR (CKD) >90 (>60 ml/min/1.73 sqM); Albumin 3.1 g/dL (3.5-5.0); Alkaline Phosphatase 68 U/L (38-126); Anion Gap 5 mmol/L; Blood Urea Nitrogen 14 mg/dL (9-20); C Reactive Protein 5.7 mg/dL (<1.0); Calcium 8.4 mg/dL (8.4-10.2); Carbon Dioxide 26 mmol/L (22-30); Chloride 103 mmol/L (98-107); Globulin 3.1 g/dL; Glucose 109 mg/dL (74-99); LDH 774 U/L (313-618); Non-African American GFR(CKD) >90 (>60 ml/min/1.73 sqM); Potassium 4.4 mmol/L (3.5-5.1); Sodium 134 mmol/L (137-145); Total Bilirubin 0.4 mg/dL (0.2-1.3); Total Protein 6.2 g/dL (6.3-8.2)
[2021-04-24] MEDS: FAMOTIDINE 20 MG TAB PO SCH (08:26)
[2021-04-24] MEDS: ENOXAPARIN 40 MG/0.4 ML SYRINGE SQ SCH (08:26)
[2021-04-24] MEDS: CHOLECALCIFEROL 25 MCG (1000 IU) TABLET PO SCH (08:27)
[2021-04-24] MEDS: dexAMETHasone 2 MG TAB PO SCH (08:27)
[2021-04-24] MEDS: ZINC SULFATE 220 MG CAP PO SCH (08:27)
[2021-04-24] MEDS: ASCORBIC ACID 500 MG TAB PO SCH (08:27)
--- NOTE | 2021-04-24 13:24 | P.PN ---
Subjective Progress Note Date: 04/24/21 History of present illness: Patient is a 40 [address] patient of Dr[address] Carter with a hx of ankylosing spondylitis non-immunosuppressive agents and prior tobacco abuse who presented t o the emergency department congestion and body aches. Patient tested positive for COVID-19 on 04/14. He was unable to cherise his fevers at home. On arrival to the ER he had a fever of 100.1 and an O2 sat of 92% on room air. Chest x-ray showed new bilateral prominent lower lobe multifocal opacity with mid lung involvement. Initial laboratory analysis shows sodium 134, chloride 97, and glucose 116. In the ER he was given a dose of Decadron, Motrin, and 1 L of IV fluids. 04/24: Patient is found sitting up in bed in no acute distress. He is not needing any oxygen for support. Patient states that he is feeling better compared to yesterday. Continues to have cough, lung sounds are clear. Patient remains afebrile, heart rate 91, respirations 20, blood pressure 134/73, pulse ox a 90% on room air. Review Of Systems: Constitutional: No fever, no chills, no night sweats. No weight change. No weakness, fatigue or lethargy. No daytime sleepiness. EENT: No headache. No blurred vision or double vision, no loss of vision. No loss of Hearing, no ringing in the ears, no dizziness. No nasal drainage or congestion. No epistaxis. No sore throat. Lungs: No shortness of breath, cough, no sputum production. No wheezing. Cardiovascular: No chest pain, no lower extremity edema. No palpitations. No paroxysmal nocturnal dyspnea. No orthopnea. No lightheadedness or dizziness. No syncopal episodes. Abdominal: no abdominal discomfort. No nausea, vomiting. no diarrhea. No constipation. No bloody or tarry stools. no loss of appetite. Genitourinary: No dysuria, increased frequency, urgency. No urinary retention. Musculoskeletal: No myalgias. No muscle weakness, no gait dysfunction, no frequent falls. No back pain. No neck pain. Integumentary: No wounds, no lesions. No rash or pruritus. No unusual bruising. No change in hair or nails. Neurologic: No aphasia. No facial droop. No change in mentation. No head injury. No headache. No paralysis. No paresthesia. Psychiatric: No depression. No anxiety. No mood swings. Endocrine: No abnormal blood sugars. No weight change. No excessive sweating or thirst. Physical exam: General Appearance: Alert, cooperative, no distress, appears stated age ill appearing. Neck HEENT: Supple, no lymphadenopathy, no thyroid enlargement, no carotid bruits. Lungs: Clear to auscultation without crackles or wheezes no rhonchi, no deformity. Chest Wall: Chest wall normal expansion with deep inspiration no tenderness and no deformity was found on exam, no costochondral pain or discomfort. Heart: Regular rate and rhythm, S1, S2 normal, no murmur, rub or gallop. Back: Symmetric, no curvature, ROM normal, no CVA tenderness. Abdomen: Soft, non-tender, no rebound or rigidity, no hepatosplenomegaly. Extremities: Extremities normal, atraumatic, no cyanosis or edema. Pulses: 2+ and symmetric. Skin: Skin color, texture, tugor normal, no rashes or lesions. Neurologic: Alert oriented x3 cranial nerves II through XII intact, no motor deficit, no abnormal balance or gait Assessment/plan: 1. COVID-19 pneumonitis and an vaccinated individual. Continue Decadron, pulmonary consult, zinc vitamin D vitamin C. 2. Acute hypoxia respiratory failure not requiring any oxygen and has SpO2 less than 94. As noted above 3. Hypernatremia secondary to dehydration mild, IV hydration 4. Ankylosing spondylitis, stable. 5. DVT prophylaxis. Lovenox 40 mg subcu 6. GI prophylaxis. Pepcid 40 mg by mouth daily CODE STATUS: Full code Discharge plan: Home possibly tomorrow Impression and plan of care have been directed as dictated by the signing physician. Rosa Cunningham nurse practitioner acting as scribe for signing physician. Objective - Vital Signs Vital signs: Vital Signs Temp 98.2 F 04/24/21 09:10 Pulse 91 04/24/21 09:10 Resp 20 04/24/21 09:10 BP 134/73 04/24/21 09:10 Pulse Ox 90 L 04/24/21 09:10 Intake & Output 04/23/21 04/24/21 04/24/21 18:59 06:59 18:59 Intake Total 600 Balance 600 Intake: Intake, IV Titration 600 Amount Sodium Chloride 0.9% 1, 600 000 ml @ 75 mls/hr IV . [id number] [facility] Rx#:[id number] Other: # Voids 6 2 - Labs CBC & Chem 7: 04/24/21 06:22 04/24/21 06:22 Labs: Abnormal Lab Results - Last 24 Hours (Table) 04/24/21 04/24/21 Range/Units 06:22 06:22 WBC 10.9 H (3.8-10.6) k/uL Sodium 134 L (137-145) mmol/L Glucose 109 H (74-99) mg/dL Lactate Dehydrogenase 774 H (313-618) U/L C-Reactive Protein 5.7 H (<1.0) mg/dL Total Protein 6.2 L (6.3-8.2) g/dL Albumin 3.1 L (3.5-5.0) g/dL
--- NOTE | 2021-04-24 13:54 | P.PN ---
Subjective Progress Note Date: 04/24/21 40-year-old male patient came into the ED because of fever and cough and body aches. The patient has been febrile and his been having issues since 04/12/2021. He apparently tested positive for coronary stenting on 04/14/2021. He continued to have symptoms was taken a combination of Motrin and Tylenol patient basis. She is currently running a low-grade fever of 100.1. Pulse ox on room air is around 90%. His chest x-ray shows diffuse bilateral pulmonary infiltrates in the perihilar area and some in the right upper lobe. The patient's blood work shows a normal white cell count, electrolytes are normal, informative markers are still pending for now. Presentation is highly suspicious for cold knife he relates that pneumonia. Note that he has history of ankylosing spondylitis and he has been treated with Humira injections 40 mg subcu every 2 weeks on outpatient basis. Note that this is a on vaccinated individual and the patient has been symptomatic since 04/12/2021. His was also infected [id number]. Mother the patient has not taken his Humira injection for more than 3 months. The patient has taken prednisone on outpatient basis and he took it for a total of 7 days started on 04/15/2021. on today's evaluation of 04/23/2021, I'm seeing the patient for a follow-up. He was seen in consultation yesterday and the patient was seen in the emergency department. Currently is on the medical floor. The patient has been infected with coronavirus and the patient had hypoxemic respiratory failure and for that reason the patient was hospitalized. Current pulse ox is ranging between 91-97% on room air oxygen and the patient is currently afebrile and hemodynamically stable. He was seen in the emergency department yesterday. He was started on Lovenox 40 mg subcu for DVT prophylaxis. The patient was also started on echo 6 mg by mouth daily. On his blood work, the patient has a LDH level of 306 and a CRP level of 12.2. all of the blood electrolytess are all within normal limits. D-dimer is at 0.6 and the white cell count is at 11.1. 04/24/2021, the patient is doing well. his pulse ox continues to fluctuate He is ranging between 86% and up to 94% on room air oxygen. As such, the patient was taken off the oxygen for the time being.The patient is otherwise c omfortable. He had an episode where he choked on some liquid and he desaturated. As such to decide to keep in the hospital for another 24 hours. She remains on Decadron 6 once a day. Is also on Lovenox for become subcu daily. No other complaints otherwise for now. His blood work, the patient has a white cell count of 10.9 with hemoglobin 13.5. Electrodes are all within normal limits. D-dimer is at 0.4. LDH level is at 774. Objective - Vital Signs Vital signs: Vital Signs Temp 98.2 F 04/24/21 09:10 Pulse 91 04/24/21 09:10 Resp 20 04/24/21 09:10 BP 134/73 04/24/21 09:10 Pulse Ox 90 L 04/24/21 09:10 Intake & Output 04/23/21 04/24/21 04/24/21 18:59 06:59 18:59 Intake Total 600 Balance 600 Intake: Intake, IV Titration 600 Amount Sodium Chloride 0.9% 1, 600 000 ml @ 75 mls/hr IV . [id number] [facility] Rx#:[id number] Other: # Voids 6 2 - Exam Gen. appearance the patient is on room air oxygen with a pulse ox ranging between 90 and 92%. His breathing is nonlabored and his comfortable. The patient appeared well nourished and normally developed. Vital signs as documented. Head exam is unremarkable. No scleral icterus or corneal arcus noted. Neck is without jugular venous distension, thyromegaly, or carotid bruits. Carotid upstrokes are brisk bilaterally. Lungs reveal crackles in the mid and lower lung alex bilaterally. Cardiac exam reveals the PMI to be normally sized and situated. Rhythm is regular. First and second heart sounds normal. No murmurs, rubs or gallops. Abdominal exam reveals normal bowel sounds, no masses, no organomegaly and no aortic enlargement. Extremities are nonedematous and both femoral and pedal pulses are normal. Examination of the skin revealed no evidence of significant rashes, suspicious appearing nevi or other concerning lesions.. Neurologically, the patient is awake and alert and the patient does not have any focal neurological deficit. Cranial nerves are essentially intact. - Labs CBC & Chem 7: 04/24/21 06:22 04/24/21 06:22 Labs: Abnormal Lab Results - Last 24 Hours (Table) 04/24/21 04/24/21 Range/Units 06:22 06:22 WBC 10.9 H (3.8-10.6) k/uL Sodium 134 L (137-145) mmol/L Glucose 109 H (74-99) mg/dL Lactate Dehydrogenase 774 H (313-618) U/L C-Reactive Protein 5.7 H (<1.0) mg/dL Total Protein 6.2 L (6.3-8.2) g/dL Albumin 3.1 L (3.5-5.0) g/dL Assessment and Plan Plan: 1 acute COVID 19 related pneumonia, treated with prednisone outpatient basis, symptoms started approximately 10 days ago worse over this past few days and the patient presented to the hospital for worsening shortness of breath and ongoing fever 2 fever secondary to above 3 generalized weakness secondary to above 4 acute hypoxic respiratory failure currently pulse ox is in the order of 92% on room air oxygen 5 history of ankylosing spondylitis, and the patient has been off Humira for several months Plan overall condition is stable and the patient is going to be monitored here for another 24 hours. His oxidation will need to be monitored. LDH is slightly elevated compared to yesterday and this is something to monitor also. We opted to keep the patient hospital for another 24 hours for further monitoring. the patient is currently on room air oxygen Continue total of 10 day course of Decadron Inflammatory markers are mildly elevated IV fluids to KVO discharge home within the next 24 hours
[2021-04-25] MEDS: FAMOTIDINE 20 MG TAB PO SCH (08:00)
[2021-04-25] MEDS: ZINC SULFATE 220 MG CAP PO SCH (08:00)
[2021-04-25] MEDS: dexAMETHasone 2 MG TAB PO SCH (08:01)
[2021-04-25] MEDS: ENOXAPARIN 40 MG/0.4 ML SYRINGE SQ SCH (08:01)
[2021-04-25] MEDS: ASCORBIC ACID 500 MG TAB PO SCH (08:01)
[2021-04-25] MEDS: CHOLECALCIFEROL 25 MCG (1000 IU) TABLET PO SCH (08:01)
--- NOTE | 2021-04-25 11:52 | P.PN ---
Subjective Progress Note Date: 04/25/21 History of present illness: Patient is a 40 yo male patient of Dr[address] Carter with a hx of ankylosing spondylitis non-immunosuppressive agents and prior tobacco abuse who presented t o the emergency department congestion and body aches. Patient tested positive for COVID-19 on 04/14. He was unable to cherise his fevers at home. On arrival to the ER he had a fever of 100.1 and an O2 sat of 92% on room air. Chest x-ray showed new bilateral prominent lower lobe multifocal opacity with mid lung involvement. Initial laboratory analysis shows sodium 134, chloride 97, and glucose 116. In the ER he was given a dose of Decadron, Motrin, and 1 L of IV fluids. 04/24: Patient is found sitting up in bed in no acute distress. He is not needing any oxygen for support. Patient states that he is feeling better compared to yesterday. Continues to have cough, lung sounds are clear. Patient remains afebrile, heart rate 91, respirations 20, blood pressure 134/73, pulse ox a 90% on room air. 04/25: Patient is found sitting up in bed in no acute distress. He is ill appearing. He is requiring oxygen for support today. Patient states that he is feeling worse compared to yesterday with his pulse ox dropping to 85% this morning. At this time he is 90% on 2 L. He remains afebrile, with a heart rate of 59, blood pressure 124/77, pulse ox a 90% on 2 L. Review Of Systems: Constitutional: No fever, no chills, no night sweats. No weight change. No wea kness, fatigue or lethargy. No daytime sleepiness. EENT: No headache. No blurred vision or double vision, no loss of vision. No loss of Hearing, no ringing in the ears, no dizziness. No nasal drainage or congestion. No epistaxis. No sore throat. Lungs: Reports shortness of breath, reports cough, no sputum production. No wheezing. Cardiovascular: No chest pain, no lower extremity edema. No palpitations. No paroxysmal nocturnal dyspnea. No orthopnea. No lightheadedness or dizziness. No syncopal episodes. Abdominal: no abdominal discomfort. No nausea, vomiting. no diarrhea. No cons tipation. No bloody or tarry stools. no loss of appetite. Genitourinary: No dysuria, increased frequency, urgency. No urinary retention. Musculoskeletal: No myalgias. No muscle weakness, no gait dysfunction, no frequent falls. No back pain. No neck pain. Integumentary: No wounds, no lesions. No rash or pruritus. No unusual bruising. No change in hair or nails. Neurologic: No aphasia. No facial droop. No change in mentation. No head injury. No headache. No paralysis. No paresthesia. Psychiatric: No depression. No anxiety. No mood swings. Endocrine: No abnormal blood sugars. No weight change. No excessive sweating or thirst. Physical exam: General Appearance: Alert, cooperative, no distress, appears stated age ill appearing. Neck HEENT: Supple, no lymphadenopathy, no thyroid enlargement, no carotid bruits. Lungs: Clear to auscultation without crackles or wheezes no rhonchi, no deformity. Chest Wall: Chest wall normal expansion with deep inspiration no tenderness and no deformity was found on exam, no costochondral pain or discomfort. Heart: Regular rate and rhythm, S1, S2 normal, no murmur, rub or gallop. Back: Symmetric, no curvature, ROM normal, no CVA tenderness. Abdomen: Soft, non-tender, no rebound or rigidity, no hepatosplenomegaly. Extremities: Extremities normal, atraumatic, no cyanosis or edema. Pulses: 2+ and symmetric. Skin: Skin color, texture, tugor normal, no rashes or lesions. Neurologic: Alert oriented x3 cranial nerves II through XII intact, no motor deficit, no abnormal balance or gait Assessment/plan: 1. COVID-19 pneumonitis and an vaccinated individual. Continue Decadron, pulmonary consult, zinc vitamin D vitamin C. 2. Acute hypoxia respiratory failure not requiring any oxygen and has SpO2 less than 94. As noted above 3. Hypernatremia secondary to dehydration mild, IV hydration 4. Ankylosing spondylitis, stable. 5. DVT prophylaxis. Lovenox 40 mg subcu 6. GI prophylaxis. Pepcid 40 mg by mouth daily CODE STATUS: Full code Discharge plan: Home with supplemental oxygen Impression and plan of care have been directed as dictated by the signing physician. Rosa Cunningham nurse practitioner acting as scribe for signing physician. Objective - Vital Signs Vital signs: Vital Signs Temp 97.9 F 11/14/21 09:49 Pulse 59 L 04/25/21 09:49 Resp 18 04/25/21 09:49 BP 124/77 04/25/21 09:49 Pulse Ox 95 04/25/21 09:49 Intake & Output 04/24/21 04/25/21 04/25/21 18:59 06:59 18:59 Intake Total 600 Balance 600 Intake: Intake, IV Titration 600 Amount Sodium Chloride 0.9% 1, 600 000 ml @ 75 mls/hr IV . [id number] [facility] Rx#:[id number] Other: # Voids 2 - Labs CBC & Chem 7: 04/24/21 06:22 04/24/21 06:22
--- NOTE | 2021-04-25 12:00 | P.PN ---
Subjective Progress Note Date: 04/25/21 40-year-old male patient came into the ED because of fever and cough and body aches. The patient has been febrile and his been having issues since 04/12/2021. He apparently tested positive for coronary stenting on 04/14/2021. He continued to have symptoms was taken a combination of Motrin and Tylenol patient basis. She is currently running a low-grade fever of 100.1. Pulse ox on room air is around 90%. His chest x-ray shows diffuse bilateral pulmonary infiltrates in the perihilar area and some in the right upper lobe. The patient's blood work shows a normal white cell count, electrolytes are normal, informative markers are still pending for now. Presentation is highly suspicious for cold knife he relates that pneumonia. Note that he has history of ankylosing spondylitis and he has been treated with Humira injections 40 mg subcu every 2 weeks on outpatient basis. Note that this is a on vaccinated individual and the patient has been symptomatic since 04/12/2021. His was also infected [id number]. Mother the patient has not taken his Humira injection for more than 3 months. The patient has taken prednisone on outpatient basis and he took it for a total of 7 days started on 04/15/2021. 04/23/2021, I'm seeing the patient for a follow-up. He was seen in consultation yesterday and the patient was seen in the emergency department. Currently is on the medical floor. The patient has been infected with coronavirus and the patient had hypoxemic respiratory failure and for that reason the patient was hospitalized. Current pulse ox is ranging between 91-97% on room air oxygen and the patient is currently afebrile and hemodynamically stable. He was seen in the emergency department yesterday. He was started on Lovenox 40 mg subcu for DVT prophylaxis. The patient was also started on echo 6 mg by mouth daily. On his blood work, the patient has a LDH level of 306 and a CRP level of 12.2. all of the blood electrolytess are all within normal limits. D-dimer is at 0.6 and the white cell count is at 11.1. 04/24/2021, the patient is doing well. his pulse ox continues to fluctuate He is ranging between 86% and up to 94% on room air oxygen. As such, the patient was taken off the oxygen for the time being.The patient is otherwise comfortable. He had an episode where he choked on some liquid and he desaturated. As such to decide to keep in the hospital for another 24 hours. She remains on Decadron 6 once a day. Is also on Lovenox for become subcu da ama. No other complaints otherwise for now. His blood work, the patient has a white cell count of 10.9 with hemoglobin 13.5. Electrodes are all within normal limits. D-dimer is at 0.4. LDH level is at 774. On 04/25/2021, the patient's is being seen for a follow-up. His pulse ox continue to watch her weight. He was dropping in the high 80s and the patient was placed on 2 L of oxygen by nasal cannula and his pulse ox is currently at 95%. He has a dry cough. No other complaints. D-dimer is low at 0.4. LDH level is low although slightly higher at 774 from yesterday. No other complai nts otherwise for now. He is resting comfortably in bed. Tolerating his diet. Objective - Vital Signs Vital signs: Vital Signs Temp 97.9 F 04/25/21 09:49 Pulse 59 L 04/25/21 09:49 Resp 18 04/25/21 09:49 BP 124/77 04/25/21 09:49 Pulse Ox 95 04/25/21 09:49 Intake & Output 04/24/21 04/25/21 04/25/21 18:59 06:59 18:59 Intake Total 600 Balance 600 Intake: Intake, IV Titration 600 Amount Sodium Chloride 0.9% 1, 600 000 ml @ 75 mls/hr IV . [id number] [facility] Rx#:[id number] Other: # Voids 2 - Exam Gen. appearance the patient is on room air oxygen with a pulse ox ranging between 90 and 92%. His breathing is nonlabored and his comfortable. The patient appeared well nourished and normally developed. Vital signs as documented. Head exam is unremarkable. No scleral icterus or corneal arcus noted. Neck is without jugular venous distension, thyromegaly, or carotid bruits. Carotid upstrokes are brisk bilaterally. Lungs reveal crackles in the mid and lower lung alex bilaterally. Cardiac exam reveals the PMI to be normally sized and situated. Rhythm is regular. First and second heart sounds normal. No murmurs, rubs or gallops. Abdominal exam reveals normal bowel sounds, no masses, no organomegaly and no ao rtic enlargement. Extremities are nonedematous and both femoral and pedal pulses are normal. Examination of the skin revealed no evidence of significant rashes, suspicious appearing nevi or other concerning lesions.. Neurologically, the patient is awake and alert and the patient does not have any focal neurological deficit. Cranial nerves are essentially intact. - Labs CBC & Chem 7: 04/24/21 06:22 04/24/21 06:22 Assessment and Plan Plan: 1 acute COVID 19 related pneumonia, treated with prednisone outpatient basis, symptoms started approximately 10 days ago worse over this past few days and the patient presented to the hospital for worsening shortness of breath and ongoing fever. The patient was essentially stable and the pulse ox was ranging between 86% up to 94% on room air oxygen and the patient was placed on 2 L. On today's evaluation, he felt a bit fatigued and tired. It was decided to keep him in the hospital for another 24 hours. 2 Fever secondary to above 3 generalized weakness, secondary to above 4 acute hypoxic respiratory failure currently pulse ox is in the order of 92% on room air oxygen 5 history of ankylosing spondylitis, and the patient has been off Humira for several months Plan Repeat chest x-ray in a.m. Titrated oxygen flow to maintain saturation above 90% overall condition is stable and the patient is going to be monitored here for another 24 hours. His oxidation will need to be monitored. LDH is slightly elevated compared to yesterday and this is something to monitor also. We opted to keep the patient hospital for another 24 hours for further monitoring. the patient is currently on room air oxygen Continue total of 10 day course of Decadron Inflammatory markers are mildly elevated IV fluids to KVO Possible discharge home within the next 24 hours
--- NOTE | 2021-04-26 07:40 | XR ---
EXAMINATION TYPE: XR chest 1V DATE OF EXAM: 04/26/2021 COMPARISON: 04/23/2021 HISTORY: 40-year-old male cough, pneumonia TECHNIQUE: Single frontal view of the chest is obtained. FINDINGS: Heart normal size. Aorta and pulmonary vasculature within normal limits. Increased interstitial densi ty and patchy airspace opacity in the periphery of the lungs, regarding left. There is minimal interv al improvement in the right lower lobe. IMPRESSION: Interstitial and patchy peripheral infiltrates, right greater than left. Overall similar but with minimal improvement in the right lower lobe.
[2021-04-26] MEDS: CHOLECALCIFEROL 25 MCG (1000 IU) TABLET PO SCH (08:20)
[2021-04-26] MEDS: ZINC SULFATE 220 MG CAP PO SCH (08:20)
[2021-04-26] MEDS: FAMOTIDINE 20 MG TAB PO SCH (08:20)
[2021-04-26] MEDS: ASCORBIC ACID 500 MG TAB PO SCH (08:20)
[2021-04-26] MEDS: ENOXAPARIN 40 MG/0.4 ML SYRINGE SQ SCH (08:20)
[2021-04-26] MEDS: dexAMETHasone 2 MG TAB PO SCH (08:20)
--- NOTE | 2021-04-26 15:51 | P.PN ---
Subjective Progress Note Date: 04/26/21 History of present illness: Patient is a 40 [address] patient of Dr[address] Carter with a hx of ankylosing spondylitis non-immunosuppressive agents and prior tobacco abuse who presented to the emergency department congestion and body aches. Patient tested positive for COVID-19 on 04/14. He was unable to cherise his fevers at home. On arrival to the ER he had a fever of 100.1 and an O2 sat of 92% on room air. Chest x-ray showed new bilateral prominent lower lobe multifocal opacity with mid lung involvement. Initial laboratory analysis shows sodium 134, chloride 97, and glucose 116. In the ER he was given a dose of Decadron, Motrin, and 1 L of IV fluids. 04/24: Patient is found sitting up in bed in no acute distress. He is not needing any oxygen for support. Patient states that he is feeling better compared to yesterday. Continues to have cough, lung sounds are clear. Patient remains afebrile, heart rate 91, respirations 20, blood pressure 134/73, pulse ox a 90% on room air. 04/25: Patient is found sitting up in bed in no acute distress. He is ill appearing. He is requiring oxygen for support today. Patient states that he is feeling worse compared to yesterday with his pulse ox dropping to 85% this morning. At this time he is 90% on 2 L. He remains afebrile, with a heart rate of 59, blood pressure 124/77, pulse ox a 90% on 2 L. 04/26: Patient is currently on 2 L nasal cannula. He complains of feeling tired. Respiratory status seems to be stable at this time. He has been followed by pulmonary medicine and continued on dexamethasone oral, Lovenox, supplements. Planned to continue monitoring patient closely and possible discharge in the next 24-48 hours. Review Of Systems: Constitutional: No fever, no chills, no night sweats. No weight change. No weakness, fatigue or lethargy. No daytime sleepiness. EENT: No headache. No blurred vision or double vision, no loss of vision. No loss of Hearing, no ringing in the ears, no dizziness. No nasal drainage or congestion. No epistaxis. No sore throat. Lungs: Reports shortness of breath improving, reports cough, no sputum production. No wheezing. Cardiovascular: No chest pain, no lower extremity edema. No palpitations. No paroxysmal nocturnal dyspnea. No orthopnea. No lightheadedness or dizziness. No syncopal episodes. Abdominal: no abdominal discomfort. No nausea, vomiting. no diarrhea. No constipation. No bloody or tarry stools. no loss of appetite. Genitourinary: No dysuria, increased frequency, urgency. No urinary retention. Musculoskeletal: No myalgias. No muscle weakness, no gait dysfunction, no frequent falls. No back pain. No neck pain. Integumentary: No wounds, no lesions. No rash or pruritus. No unusual bruising. No change in hair or nails. Neurologic: No aphasia. No facial droop. No change in mentation. No head injury. No headache. No paralysis. No paresthesia. Psychiatric: No depression. No anxiety. No mood swings. Endocrine: No abnormal blood sugars. No weight change. No excessive sweating or thirst. Physical exam: General Appearance: This is a 40-year-old male sitting up in a recliner and appears to be comfortable at rest. Neck HEENT: Supple, no lymphadenopathy, no thyroid enlargement, no carotid bruits. Lungs: Clear to auscultation without crackles or wheezes no rhonchi, no de formity. Chest Wall: Chest wall normal expansion with deep inspiration no tenderness and no deformity was found on exam, no costochondral pain or discomfort. Heart: Regular rate and rhythm, S1, S2 normal, no murmur, rub or gallop. Back: Symmetric, no curvature, ROM normal, no CVA tenderness. Abdomen: Soft, non-tender, no rebound or rigidity, no hepatosplenomegaly. Extremities: Extremities normal, atraumatic, no cyanosis or edema. Pulses: 2+ and symmetric. Skin: Skin color, texture, tugor normal, no rashes or lesions. Neurologic: Alert oriented x3 cranial nerves II through XII intact, no motor deficit, no abnormal balance or gait Assessment/plan: 1. COVID-19 pneumonitis and an vaccinated individual. Continue Decadron, pulmonary consult, zinc vitamin D vitamin C. 2. Acute hypoxia respiratory failure not requiring any oxygen and has SpO2 less than 94. As noted above 3. Hypernatremia secondary to dehydration mild, IV hydration 4. Ankylosing spondylitis, stable. 5. DVT prophylaxis. Lovenox 40 mg subcu 6. GI prophylaxis. Pepcid 40 mg by mouth daily CODE STATUS: Full code Discharge plan: Home on Monday or Monday with supplemental oxygen Impression and plan of care have been directed as dictated by the signing physician. Celeste Barlow nurse practitioner acting as scribe for signing physician. Objective - Vital Signs Vital signs: Vital Signs Temp 97.7 F 04/26/21 09:33 Pulse 85 04/26/21 09:33 Resp 17 04/26/21 09:33 BP 114/69 04/26/21 09:33 Pulse Ox 91 L 04/26/21 09:33 Intake & Output 04/25/21 04/26/21 04/26/21 18:59 06:59 18:59 Other: # Voids 3 2 - Labs CBC & Chem 7: 04/24/21 06:22 04/24/21 06:22
--- NOTE | 2021-04-26 17:28 | P.PN ---
Subjective Progress Note Date: 04/26/21 Principal diagnosis: Dyspnea, hypoxia COVID-19 40-year-old male patient came into the ED because of fever and cough and body aches. The patient has been febrile and his been having issues since 04/12/2021. He apparently tested positive for coronary stenting on 04/14/2021. He continued to have symptoms was taken a combination of Motrin and Tylenol patient basis. She is currently running a low-grade fever of 100.1. Pulse ox on room air is around 90%. His chest x-ray shows diffuse bilateral pulmonary infiltrates in the perihilar area and some in the right upper lobe. The patient's blood work shows a normal white cell count, electrolytes are normal, informative markers are still pending for now. Presentation is highly suspicious for cold knife he relates that pneumonia. Note that he has history of ankylosing spondylitis and he has been treated with Humira injections 40 mg subcu every 2 weeks on outpatient basis. Note that this is a on vaccinated individual and the patient has been symptomatic since 04/12/2021. His was also infected [id number]. Mother the patient has not taken his Humira injection for more than 3 months. The patient has taken prednisone on outpatient basis and he took it for a total of 7 days started on 04/15/2021. 04/23/2021, I'm seeing the patient for a follow-up. He was seen in consultation yesterday and the patient was seen in the emergency department. Currently is on the medical floor. The patient has been infected with coronavirus and the patient had hypoxemic respiratory failure and for that reason the patient was hospitalized. Current pulse ox is ranging between 91-97% on room air oxygen and the patient is currently afebrile and hemodynamically stable. He was seen in the emergency department yesterday. He was started on Lovenox 40 mg subcu for DVT prophylaxis. The patient was also started on echo 6 mg by mouth daily. On his blood work, the patient has a LDH level of 306 and a CRP level of 12.2. all of the blood electrolytess are all within normal limits. D-dimer is at 0.6 and the white cell count is at 11.1. 04/24/2021, the patient is doing well. his pulse ox continues to fluctuate He is ranging between 86% and up to 94% on room air oxygen. As such, the patient was taken off the oxygen for the time being.The patient is otherwise comfortable. He had an episode where he choked on some liquid and he desaturated. As such to decide to keep in the hospital for another 24 hours. She remains on Decadron 6 once a day. Is also on Lovenox for become subcu daily. No other complaints otherwise for now. His blood work, the patient has a white cell count of 10.9 with hemoglobin 13.5. Electrodes are all within normal limits. D-dimer is at 0.4. LDH level is at 774. On 04/25/2021, the patient's is being seen for a follow-up. His pulse ox continue to watch her weight. He was dropping in the high 80s and the patient was placed on 2 L of oxygen by nasal cannula and his pulse ox is currently at 95%. He has a dry cough. No other complaints. D-dimer is low at 0.4. LDH level is low although slightly higher at 774 from yesterday. No other complaints otherwise for now. He is resting comfortably in bed. Tolerating his diet. On 04/26/2021 patient seen in follow-up on medical surgical floor, he is congratulated is of oxygen pulse ox is 95%. Looks comfortable, he is acc ompanied to the bed, no apparent respiratory distress, clinically he states he feels about the same. No fever or chills, vital signs have been stable, still has occasional cough, and a short of breath with exertion. His chest x-ray has been reviewed showing interstitial and patchy peripheral infiltrates right greater than left. Overall with some improvement in the right lower lobe. His labs have been reviewed, with blood cell count is 12.9, hemoglobin is 13.5, d- dimer is negative at 0.46, serum sodium is 134, the rest of electrolytes and renal profile were unremarkable. LDH is increased and is up to 774, and CRP is actually improved and down to 5.7. Currently on Decadron 6 mg daily, pr ophylactic dose Lovenox, and COVID-19 vitamins. Objective - Vital Signs Vital signs: Vital Signs Temp 97.9 F 04/26/21 14:37 Pulse 68 04/26/21 14:37 Resp 17 11/15/21 14:37 BP 129/74 04/26/21 14:37 Pulse Ox 95 04/26/21 14:37 Intake & Output 04/25/21 04/26/21 04/26/21 18:59 06:59 18:59 Other: # Voids 3 2 2 - Exam GENERAL EXAM: Alert, very pleasant, 40-year-old white male, on 2 L of oxygen pulse ox 95% comfortable in no apparent distress. HEAD: Normocephalic/atraumatic. EYES: Normal reaction of pupils, equal size. Conjunctiva pink, sclera white. NOSE: Clear with pink turbinates. THROAT: No erythema or exudates. NECK: No masses, no JVD, no thyroid enlargement, no adenopathy. CHEST: No chest wall deformity. Symmetrical expansion. LUNGS: Equal air entry with bibasilar crackles CVS: Regular rate and rhythm, normal S1 and S2, no gallops, no murmurs, no rubs ABDOMEN: Soft, nontender. No hepatosplenomegaly, normal bowel sounds, no guarding or rigidity. EXTREMITIES: No clubbing, no edema, no cyanosis, 2+ pulses and upper and lower extremities. MUSCULOSKELETAL: Muscle strength and tone normal. SPINE: No scoliosis or deformity SKIN: No rashes CENTRAL NERVOUS SYSTEM: Alert and oriented -3. No focal deficits, tone is normal in all 4 extremities. PSYCHIATRIC: Alert and oriented -3. Appropriate affect. Intact judgment and insight. - Labs CBC & Chem 7: 04/24/21 06:22 04/24/21 06:22 Assessment and Plan Plan: Assessment: #1. Acute COVID 19 pneumonia, treated on an outpatient basis with prednisone, and patient presented to the ED after having 10 days worth of symptoms. Patient currently remains stable, he still on requiring 2 L of oxygen and his pulse ox is 95%. #2. Fever, fatigue, off related to the above #3. Generalized weakness #4. Acute hypoxic respiratory failure related to acute COVID-19 pneumonia #5. History of ankylosing spondylitis, and patient has been off Humira for several months Plan: Continue current medical treatment, today's chest x-ray has been reviewed Today's labs have been reviewed Still requiring 2 L of supplemental oxygen Overall his condition has remained stable No worsening dyspnea or hypoxia, Increase activity as tolerated Continue current dose Decadron and prophylactic Lovenox We'll continue to monitor his condition the next 24 hours and if there is no worsening, may consider discharge home I performed a history & physical examination of the patient and discussed their management with my nurse practitioner, Lauren Mondragon. I reviewed the nurse practitioner's note and agree with the documented findings and plan of care. Lung sounds are positive for diminished breath sounds throughout the lung alex. The findings and the impression was discussed with the patient. I attest to the documentation by the nurse practitioner. Time with Patient: Less than 30
[2021-04-27] MEDS: dexAMETHasone 2 MG TAB PO SCH (08:12)
[2021-04-27] MEDS: CHOLECALCIFEROL 25 MCG (1000 IU) TABLET PO SCH (08:12)
[2021-04-27] MEDS: ASCORBIC ACID 500 MG TAB PO SCH (08:12)
[2021-04-27] MEDS: ZINC SULFATE 220 MG CAP PO SCH (08:12)
[2021-04-27] MEDS: ENOXAPARIN 40 MG/0.4 ML SYRINGE SQ SCH (08:12)
[2021-04-27] MEDS: FAMOTIDINE 20 MG TAB PO SCH (08:12)
--- NOTE | 2021-04-27 10:06 | P.DS ---
Providers Date of admission: 04/22/21 11:06 Expected date of discharge: 04/27/21 Attending physician: Carmelo Sanchez Consults: 04/22/21 10:54 Consult Physician Urgent Consulting Provider: Angle Bridges Consult Reason/Comments: covid Do you want consulting provider notified?: Yes [facility]: History of present illness: Patient is a 40 yo male patient of Dr. Carter with a hx of ankylosing spondylitis non-immunosuppressive agents and prior tobacco abuse who presented to the emergency department congestion and body aches. Patient tested positive for COVID-19 on 04/14. He was unable to cherise his fevers at home. On arrival to the ER he had a fever of 100.1 and an O2 sat of 92% on room air. Chest x-ray showed new bilateral prominent lower lobe multifocal opacity with mid lung involvement. Initial laboratory analysis shows sodium 134, chloride 97, and glucose 116. In the ER he was given a dose of Decadron, Motrin, and 1 L of IV fluids. 04/24: Patient is found sitting up in bed in no acute distress. He is not needing any oxygen for support. Patient states that he is feeling better compared to yesterday. Continues to have cough, lung sounds are clear. Patient remains afebrile, heart rate 91, respirations 20, blood pressure 134/73, pulse ox a 90% on room air. 04/25: Patient is found sitting up in bed in no acute distress. He is ill appearing. He is requiring oxygen for support today. Patient states that he is feeling worse compared to yesterday with his pulse ox dropping to 85% this morning. At this time he is 90% on 2 L. He remains afebrile, with a heart rate of 59, blood pressure 124/77, pulse ox a 90% on 2 L. 04/26: Patient is currently on 2 L nasal cannula. He complains of feeling tired. Respiratory status seems to be stable at this time. He has been followed by pulmonary medicine and continued on dexamethasone oral, Lovenox, supplements. Planned to continue monitoring patient closely and possible discharge in the next 24-48 hours. 04/27: Vision is currently on room air and pulse oxing 93%. His been afebrile. He has occasional cough without sputum production. Patient is able to ambulate in his room and he states in general he is feeling much better. Repeat chest x- ray reveals interstitial patchy infiltrates right greater than left minimal improvement in the right lower lobe. Patient has been cleared by pulmonary medicine for discharge. Patient will be discharged today in stable condition. DISCHARGE DIAGNOSES: 1. COVID-19 pneumonitis in an vaccinated individual. 2. Acute hypoxia respiratory failure 3. Hypernatremia secondary to dehydration mild 4. Ankylosing spondylitis, stable. Discharge plan: Home Greater than 35 minutes was utilized and coordinating patient's discharge. Impression and plan of care have been directed as dictated by the signing physician. Celeste Barlow nurse practitioner acting as scribe for signing physician. Patient Condition at Discharge: Good Plan - Discharge Summary Discharge Rx Participant: No New Discharge Prescriptions: New Zinc Sulfate [Orazinc] 220 mg PO DAILY cap Ascorbic Acid [Vitamin C] 1,000 mg PO DAILY tab Dexamethasone [Decadron] 6 mg PO DAILY #5 tablet Famotidine [Pepcid] 40 mg PO DAILY tab Cholecalciferol [Vitamin D3 (25 Mcg = 1000 Iu)] 25 mcg PO DAILY tablet Discharge Medication List Ascorbic Acid [Vitamin C] 1,000 mg PO DAILY tab 04/27/21 [Rx] Cholecalciferol [Vitamin D3 (25 Mcg = 1000 Iu)] 25 mcg PO DAILY tablet 04/27/21 [Rx] Dexamethasone [Decadron] 6 mg PO DAILY #5 tablet 04/27/21 [Rx] Famotidine [Pepcid] 40 mg PO DAILY tab 04/27/21 [Rx] Zinc Sulfate [Orazinc] 220 mg PO DAILY cap 04/27/21 [Rx] Follow up Appointment(s)/Referral(s): João Carter DO [Primary Care Provider] - 1 Week (Unable to connect to office. Please call to make appoitment) Angle Bridges MD [STAFF PHYSICIAN] - 05/28/21 2:30 pm (With Angelic) Patient Instructions/Handouts: Coronavirus Disease 2019 (COVID-19) Activity/Diet/Wound Care/Special Instructions: Per Dr. Bridges, will need 5 more days of dex and covid vitamins upon D/C today 04/27 Discharge Disposition: HOME SELF-CARE
[2021-04-27 10:31] VITALS: BP 112/71; PULSE 82; RESP 18; TEMP 97.8
--- NOTE | 2021-04-27 11:38 | P.PN ---
Subjective Progress Note Date: 04/27/21 Principal diagnosis: Dyspnea, hypoxia COVID-19 40-year-old male patient came into the ED because of fever and cough and body aches. The patient has been febrile and his been having issues since 04/12/2021. He apparently tested positive for coronary stenting on 04/14/2021. He continued to have symptoms was taken a combination of Motrin and Tylenol patient basis. She is currently running a low-grade fever of 100.1. Pulse ox on room air is around 90%. His chest x-ray shows diffuse bilateral pulmonary infiltrates in the perihilar area and some in the right upper lobe. The patient's blood work shows a normal white cell count, electrolytes are normal, informative markers are still pending for now. Presentation is highly suspicious for cold knife he relates that pneumonia. Note that he has history of ankylosing spondylitis and he has been treated with Humira injections 40 mg subcu every 2 weeks on outpatient basis. Note that this is a on vaccinated individual and the patient has been symptomatic since 04/12/2021. His was also infected [id number]. Mother the patient has not taken his Humira injection for more than 3 months. The patient has taken prednisone on outpatient basis and he took it for a total of 7 days started on 04/15/2021. 04/23/2021, I'm seeing the patient for a follow-up. He was seen in consultation yesterday and the patient was seen in the emergency department. Currently is on the medical floor. The patient has been infected with coronavirus and the patient had hypoxemic respiratory failure and for that reason the patient was hospitalized. Current pulse ox is ranging between 91-97% on room air oxygen and the patient is currently afebrile and hemodynamically stable. He was seen in the emergency department yesterday. He was started on Lovenox 40 mg subcu for DVT prophylaxis. The patient was also started on echo 6 mg by mouth daily. On his blood work, the patient has a LDH level of 306 and a CRP level of 12.2. all of the blood electrolytess are all within normal limits. D-dimer is at 0.6 and the white cell count is at 11.1. 04/24/2021, the patient is doing well. his pulse ox continues to fluctuate He is ranging between 86% and up to 94% on room air oxygen. As such, the patient was taken off the oxygen for the time being.The patient is otherwise comfortable. He had an episode where he choked on some liquid and he desaturated. As such to decide to keep in the hospital for another 24 hours. She remains on Decadron 6 once a day. Is also on Lovenox for become subcu daily. No other complaints otherwise for now. His blood work, the patient has a white cell count of 10.9 with hemoglobin 13.5. Electrodes are all within normal limits. D-dimer is at 0.4. LDH level is at 774. On 04/25/2021, the patient's is being seen for a follow-up. His pulse ox continue to watch her weight. He was dropping in the high 80s and the patient was placed on 2 L of oxygen by nasal cannula and his pulse ox is currently at 95%. He has a dry cough. No other complaints. D-dimer is low at 0.4. LDH level is low although slightly higher at 774 from yesterday. No other complaints otherwise for now. He is resting comfortably in bed. Tolerating his diet. On 04/26/2021 patient seen in follow-up on medical surgical floor, he is congratulated is of oxygen pulse ox is 95%. Looks comfortable, he is acc ompanied to the bed, no apparent respiratory distress, clinically he states he feels about the same. No fever or chills, vital signs have been stable, still has occasional cough, and a short of breath with exertion. His chest x-ray has been reviewed showing interstitial and patchy peripheral infiltrates right greater than left. Overall with some improvement in the right lower lobe. His labs have been reviewed, with blood cell count is 12.9, hemoglobin is 13.5, d- dimer is negative at 0.46, serum sodium is 134, the rest of electrolytes and renal profile were unremarkable. LDH is increased and is up to 774, and CRP is actually improved and down to 5.7. Currently on Decadron 6 mg daily, pr ophylactic dose Lovenox, and COVID-19 vitamins. On 04/27/2021 patient seen in follow-up on medical surgical floor. He is awake and alert, he is breathing comfortably, currently on room air oxygen 93%, afebrile, still has a dry cough, no phlegm production, no chest pain, he's been tolerating ambulation, overall feeling better. Lung sounds reveal bibasilar crackles, no rhonchi or wheezing, no chest pain. Chest x-ray reveals interstitial patchy peripheral infiltrates right greater than left, minimal improvement in the right lower lobe. Clinical has remained stable, without deterioration in clinical status or oxygenation. Stable for discharge home today Objective - Vital Signs Vital signs: Vital Signs Temp 97.8 F 04/27/21 10:00 Pulse 82 04/27/21 10:00 Resp 18 04/27/21 10:00 BP 112/71 04/27/21 10:00 Pulse Ox 93 L 04/27/21 10:00 Intake & Output 04/26/21 04/27/21 04/27/21 18:59 06:59 18:59 Intake Total 180 Balance 180 Intake: Oral 180 Other: Voiding Method Toilet # Voids 2 1 3 # Bowel Movements 2 - Exam GENERAL EXAM: Alert, very pleasant, 40-year-old white male, on room air with pulse ox 93% comfortable in no apparent distress. HEAD: Normocephalic/atraumatic. EYES: Normal reaction of pupils, equal size. Conjunctiva pink, sclera white. NOSE: Clear with pink turbinates. THROAT: No erythema or exudates. NECK: No masses, no JVD, no thyroid enlargement, no adenopathy. CHEST: No chest wall deformity. Symmetrical expansion. LUNGS: Equal air entry with bibasilar crackles CVS: Regular rate and rhythm, normal S1 and S2, no gallops, no murmurs, no rubs ABDOMEN: Soft, nontender. No hepatosplenomegaly, normal bowel sounds, no guarding or rigidity. EXTREMITIES: No clubbing, no edema, no cyanosis, 2+ pulses and upper and lower extremities. MUSCULOSKELETAL: Muscle strength and tone normal. SPINE: No scoliosis or deformity SKIN: No rashes CENTRAL NERVOUS SYSTEM: Alert and oriented -3. No focal deficits, tone is normal in all 4 extremities. PSYCHIATRIC: Alert and oriented -3. Appropriate affect. Intact judgment and insight. - Labs CBC & Chem 7: 04/24/21 06:22 04/24/21 06:22 Assessment and Plan Plan: Assessment: #1. Acute COVID 19 pneumonia, treated on an outpatient basis with prednisone, and patient presented to the ED after having 10 days worth of symptoms. Patient currently remains stable, he still on requiring 2 L of oxygen and his pulse ox is 95%. #2. Fever, fatigue, off related to the above #3. Generalized weakness #4. Acute hypoxic respiratory failure related to acute COVID-19 pneumonia #5. History of ankylosing spondylitis, and patient has been off Humira for several months Plan: Patient today is on room air No worsening dyspnea or hypoxia Obtain home oxygen assessment Stable for discharge home from pulmonary perspective Complete a total of 10 day course of Decadron, continue vitamin C, D, and zinc Outpatient follow-up with Dr. Bridges in the office in 2 weeks I performed a history & physical examination of the patient and discussed their management with my nurse practitioner, Lauren Mondragon. I reviewed the nurse practitioner's note and agree with the documented findings and plan of care. Lung sounds are positive for diminished breath sounds throughout the lung fiel ds. The findings and the impression was discussed with the patient. I attest to the documentation by the nurse practitioner. Time with Patient: Less than 30
== END 2021-04-27 11:37 | disposition home or self-care (01) | DRG 177 ==
LOC: EC 08:36 → 4SSUR 11:06
PROVIDERS: ADMIT Internal Medicine Geriatric Medicine; ATTEND Internal Medicine Geriatric Medicine
DX: U07.1 COVID-19 (principal); J12.82 Pneumonia due to coronavirus disease 2019; J96.01 Acute respiratory failure with hypoxia; E87.1 Hypo-osmolality and hyponatremia; E87.0 Hyperosmolality and hypernatremia; E86.0 Dehydration; Z79.01 Long term (current) use of anticoagulants; Z87.891 Personal history of nicotine dependence; Z95.5 Presence of coronary angioplasty implant and graft; M19.90 Unspecified osteoarthritis, unspecified site
CPT/HCPCS: 36415; 71045; 71046; 80048; 80053; 82728; 83615; 85025; 85027; 85379; 86140; 93005; 94640; 94760; 96361; 96372; 96374; 99285

== ENCOUNTER → 2021-05-31 | Outpatient (CLI) | payer BC | END | disposition home or self-care (01) | LOC: LABWHC1 08:19 | PROVIDERS: ATTEND Urology | DX: R79.9 Abnormal finding of blood chemistry, unspecified (principal) | CPT/HCPCS: 36415; 82105; 83615 ==

== ENCOUNTER → 2021-06-15 | Outpatient (CLI) | payer SELFPAY | END | disposition home or self-care (01) | LOC: LABWHC1 15:45 | PROVIDERS: ATTEND Family Medicine | DX: Z09 Encounter for follow-up examination after completed treatment for conditions other than malignant neoplasm (principal); Z86.16 Personal history of COVID-19 | CPT/HCPCS: 36415; 85379 ==

== ENCOUNTER → 2022-05-11 | Outpatient (CLI) | payer BC | END | disposition home or self-care (01) | LOC: LABWHC1 10:36 | PROVIDERS: ATTEND Family Medicine | DX: I82.409 Acute embolism and thrombosis of unspecified deep veins of unspecified lower extremity (principal) | CPT/HCPCS: 36415; 85379 ==

== ENCOUNTER → 2022-05-27 | Outpatient (CLI) | payer BC ==
--- NOTE | 2022-05-31 10:15 | US ---
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 Edema right foot and ankle for 1 month Doppler Waveforms: Right: Biphasic Ankle-Brachial Indices: Right: 1.22 Left: 1.13 Toe Brachial Indices: Right: 0.67 Left: 0.65 IMPRESSION: Normal bilateral ANGELO and TBI values.
== END | disposition home or self-care (01) ==
LOC: RADUSWWP 12:38
PROVIDERS: ATTEND Family Medicine
DX: I70.211 Atherosclerosis of native arteries of extremities with intermittent claudication, right leg (principal); R60.0 Localized edema
CPT/HCPCS: 93922